=== PATIENT | female | born 1950 | race Hispanic/Latino ===

== ENCOUNTER 2017-01-19 20:06 | Inpatient (IN) | payer OTHER ==
[2017-01-19] MEDS ORDERED: Sodium Chloride 0.9% 1,000 ML IV ONE (20:48)
--- NOTE | 2017-01-19 20:48 | C.PDOC ---
History Of Present Illness Patient presents to the ER with a complaint of right sided abdominal pain, associated with nausea and vomiting. Patient states she has not taken anything for the pain; denies diarrhea, constipation, fever, or chills. Time Seen by Provider: 01/19/17 20:48 Chief Complaint (Nursing): Abdominal Pain History Per: Patient History/Exam Limitations: no limitations Onset/Duration Of Symptoms: Hrs Current Symptoms Are (Timing): Still Present Severity: Mild Pain Scale Rating Of: 4 Location Of Pain/Discomfort: Other (Right sided) Radiation Of Pain To:: None Quality Of Discomfort: Unable To Describe Associated Symptoms: Nausea, Vomiting. denies: Fever, Chills, Diarrhea, Constipation Exacerbating Factors: None Alleviating Factors: None Recent travel outside of the [place]: No Abnormal Vaginal Bleeding: No Past Medical History Reviewed: Historical Data, Nursing Documentation, Vital Signs Vital Signs: Last Vital Signs Temp 98.8 F 01/19/17 20:17 Pulse 76 01/19/17 20:17 Resp 20 01/19/17 20:17 BP 113/72 01/19/17 20:17 Pulse Ox 100 01/19/17 22:38 - Medical History PMH: Depression, Fractures, Graves' Disease, HTN, Hyperthyroidism Surgical History: Family History: States: No Known Family Hx - Social History Hx Tobacco Use: No Hx Alcohol Use: Yes ("social") Hx Substance Use: No - Immunization History Hx Tetanus Toxoid Vaccination: No Hx Influenza Vaccination: No Review Of Systems Constitutional: Negative for: Fever, Chills Gastrointestinal: Positive for: Nausea, Vomiting, Abdominal Pain. Negative for : Diarrhea, Constipation Physical Exam - Physical Exam Appears: Non-toxic Skin: Warm, Dry Head: Normacephalic Eye(s): bilateral: Normal Inspection Oral Mucosa: Moist Neck: Supple Chest: Symmetrical Cardiovascular: Rhythm Regular Respiratory: No Rales, No Rhonchi, No Wheezing Gastrointestinal/Abdominal: Soft, Tenderness (Diffuse) Extremity: No Tenderness Extremity: Bilateral: Atraumatic Pulses: Left Dorsalis Pedis: Normal, Right Dorsalis Pedis: Normal Neurological/Psych: Oriented x3 Gait: Steady ED Course And Treatment - Laboratory Results Result Diagrams: 01/19/17 21:56 01/19/17 21:56 ECG: Interpreted By Me, Viewed By Me ECG Rhythm: Sinus Rhythm (76), Nonspecific Changes O2 Sat by Pulse Oximetry: 100 (Room air) Pulse Ox Interpretation: Normal Progress Note: EKG, blood work, and urinalysis ordered. Pepcid, zofran, and IV fluids administered. Disposition Discussed With : Ellen Greene Comment: [facility] and took over the care at 1:43 AM Doctor Will See Patient In The: Hospital Counseled Patient/Family Regarding: Studies Performed, Diagnosis - Disposition Disposition: HOSPITALIZED Disposition Time: 20:48 Condition: FAIR Forms: [facility] (Martiniquais) - POA Present On Arrival: None - Clinical Impression Clinical Impression: Abdominal pain, Nausea, Gallstones, Diverticulosis - Scribe Statement The provider has reviewed the documentation as recorded by the Scribcathy Child All medical record entries made by the Scribe were at my direction and personally dictated by me. I have reviewed the chart and agree that the record accurately reflects my personal performance of the history, physical exam, medical decision making, and the department course for this patient. I have also personally directed, reviewed, and agree with the discharge instructions and disposition. Decision To Admit - Pt Status Changed To: Hospital Disposition Of: Inpatient - Admit Certification Admit to Inpatient:: After my assessment, the patient will require hospitalization for at least two midnights. This is because of the severity of symptoms shown, intensity of services needed, and/or the medical risk in this patient being treated as an outpatient. - InPatient: Physician Admission Certification:: After my assessment, the patient will require hospitalization for at least two midnights. This is because of the severity of symptoms shown, intensity of services needed, and/or the medical risk in this patient being treated as an outpatient. - . Bed Request Type: Regular Admitting Physician: Ellen Greene Patient Diagnosis: Abdominal pain, Nausea, Gallstones, Diverticulosis
[2017-01-19] MEDS ORDERED: Sodium Chloride 0.9% 1,000 ML ONE (21:57)
[2017-01-19 22:00] LABS: BASO % 0.6 % (0.0-2.0); EOS # 0.2 K/uL (0.0-0.7); EOS % 2.3 % (0.0-4.0); HEMATOCRIT 34.8 % (34.0-47.0); LYMPH # 2.4 K/uL (1.0-4.3); LYMPH % 37.1 % (20.0-40.0); MEAN CELL VOLUME 92.2 fL (81.0-99.0); MEAN CORPUSCULAR HGB CONC 34.7 g/dL (33.0-37.0); MEAN PLATELET VOLUME 8.3 fL (7.2-11.7); MONO # 0.6 K/uL (0.0-0.8); MONO % 8.7 % (0.0-10.0); RED CELL DISTRIBUTION WIDTH 12.7 % (11.5-14.5); WHITE BLOOD COUNT 6.5 K/uL (4.8-10.8)
[2017-01-19 22:08] LABS: CHLORIDE 99 mmol/L (98-107); SODIUM 140 mmol/L (132-148)
[2017-01-19 22:10] LABS: AST/SGOT 24 U/L (14-36); BILIRUBIN,TOTAL 0.8 mg/dL (0.2-1.3); CARBON DIOXIDE 25 mmol/L (22-30); GFR AFRICAN-AMERICAN > 60; RBC URINE 15 /hpf (0-3); URINE BILIRUBIN NEGATIVE (NEGATIVE); URINE BLOOD 1+ (NEGATIVE); URINE COLOR Yellow (YELLOW); URINE GLUCOSE (UA) NORMAL (Normal); URINE KETONE NEGATIVE (NEGATIVE); URINE LEUKOCYTE ESTERASE 1+ Leu/uL (Negative); URINE PROTEIN NEGATIVE (NEGATIVE); WBC URINE 6 /hpf (0-5)
[2017-01-19 22:11] LABS: ALB/GLOB RATIO 1.3 (1.0-2.1); ALKALINE PHOSPHATASE 73 U/L (38-126); ALT/SGPT 31 U/L (9-52); BLOOD UREA NITROGEN 34 mg/dL (7-17); CALCIUM 9.6 mg/dl (8.6-10.4); GLUCOSE,RANDOM 87 mg/dL (65-105); TOTAL PROTEIN 6.8 g/dL (6.3-8.3)
[2017-01-19] MEDS ORDERED: Iohexol 300 100 ML IJ ONE (23:17)
--- NOTE | 2017-01-20 00:54 | CT ---
EXAM: CT Abdomen and Pelvis With Intravenous Contrast EXAM DATE/TIME: 01/19/2017 10:12 PM CLINICAL HISTORY: 66 years old, female; Pain; Abdominal pain; Flank; Right upper quadrant (ruq); Additional info: Ruq abd pain TECHNIQUE: Axial computed tomography images of the abdomen and pelvis with intravenous contrast. All CT scans at this facility use one or more dose reduction techniques, viz.: automated exposure control; ma/kV adjustment per patient size (including targeted exams where dose is matched to indication; i.e. head); or iterative reconstruction technique. Coronal and sagittal reformatted images were created and reviewed. CONTRAST: 100 mL of OMNIPAQUE 300 administered intravenously. COMPARISON: There are no prior studies for comparison. FINDINGS: Lower thorax: Heart size is normal. There is a hiatal hernia. There is atelectasis and scarring at the lung bases. ABDOMEN: Liver: There is fatty infiltration of the liver. Gallbladder and bile ducts: Gallbladder is distended. There are multiple small gallstones. Common duct is unremarkable. Pancreas: Pancreas is atrophic. Spleen: unremarkable Adrenals: unremarkable Kidneys and ureters: unremarkable Stomach and bowel: Stomach is almost empty. Rotation is normal. There are mildly distended small bowel loops in the right upper quadrant. There is no small bowel obstruction. Terminal ileum is unremarkable. Appendix is not visualized.There is no pericecal inflammation.Colon is incompletely distended which limits evaluation. There is scattered diverticulosis Appendix: See above. PELVIS: Bladder: The bladder is incompletely distended. There is bladder wall thickening. Reproductive: Uterus and adnexal structures are unremarkable. ABDOMEN and PELVIS: Intraperitoneal space: There is no free air or free fluid. Bones/joints: There are old bilateral ischial and pubic fractures. Symphysis pubis is normal in width. There degenerative changes in the spine. Soft tissues: There is a small fat containing umbilical hernia. Vasculature: There are vascular calcifications. Lymph nodes: There is no pathologic adenopathy. IMPRESSION: Gallstones, no ductal dilatation; fatty liver; bladder wall thickening, underdistention versus inflammation; diverticulosis without CT findings of diverticulitis Additional findings as described above.
[2017-01-20] MEDS ORDERED: Potassium Chloride 10 mEq ER Tab PO STA (03:17)
[2017-01-20] MEDS ORDERED: Potassium Chloride 20 mEq ER Tab PO ONE (03:23)
--- NOTE | 2017-01-20 08:26 | CP.PCM.CON ---
History of Present Illness - History of Present Illness History of Present Illness: will plan lap gb today Past Patient History - Past Medical History & Family History Past Medical History?: Yes - Past Social History Smoking Status: Former Smoker - CARDIAC Hx Cardiac Disorders: Yes Hx Hypertension: Yes - PULMONARY Hx Respiratory Disorders: No - NEUROLOGICAL Hx Neurological Disorder: No - HEENT Hx HEENT Problems: No - RENAL Hx Chronic Kidney Disease: No - ENDOCRINE/METABOLIC Hx Endocrine Disorders: Yes Hx Hyperthyroidism: Yes - HEMATOLOGICAL/ONCOLOGICAL Hx Blood Disorders: No Other/Comment: vitamin d eficency - INTEGUMENTARY Hx Dermatological Problems: No - MUSCULOSKELETAL/RHEUMATOLOGICAL Hx Musculoskeletal Disorders: Yes Hx Falls: Yes Hx Fractures: Yes - GASTROINTESTINAL Hx Gastrointestinal Disorders: No Other/Comment: gallbladder problems. - GENITOURINARY/GYNECOLOGICAL Hx Genitourinary Disorders: No - PSYCHIATRIC Hx Psychophysiologic Disorder: Yes Hx Depression: Yes Hx Substance Use: No - SURGICAL HISTORY Hx Surgeries: Yes Hx Section: Yes (x 2) Other/Comment: s/p surgery left tibia after a fall - ANESTHESIA Hx Anesthesia: Yes Hx Anesthesia Reactions: No Hx Malignant Hyperthermia: No Meds Allergies/Adverse Reactions: Allergies Allergy/AdvReac Type Severity Reaction Status Date / Time No Known Allergies Allergy Verified 10/25/15 12:57 - Medications Medications: Current Medications Hydromorphone HCl (Dilaudid) 1 mg IVP Q6H PRN PRN Reason: Pain, severe (8-10) Ciprofloxacin (Cipro 400mg/200ml Dsw) 400 mg in 200 mls @ 133 mls/hr IVPB Q12H [facility] Dextrose/Sodium Chloride (Dextrose 5%/0.45% Ns 1000 Ml) 1,000 mls @ 100 mls/hr IV .Q10H [facility] Metronidazole (Flagyl) 500 mg in 100 mls @ 100 mls/hr IVPB Q8 [facility] Pantoprazole Sodium (Protonix Inj) 40 mg IVP DAILY [facility] Pneumococcal Polyvalent Vaccine (Pneumovax 23 Vaccine) 0.5 ml SC .ONCE ONE Stop: 01/22/17 10:01 Results - Vital Signs Recent Vital Signs: Last Vital Signs Temp 97.7 F 01/20/17 08:08 Pulse 68 01/20/17 08:08 Resp 20 01/20/17 08:08 BP 146/75 01/20/17 08:08 Pulse Ox 98 01/20/17 08:08 - Labs Result Diagrams: 01/19/17 21:56 01/19/17 21:56 Labs: Laboratory Results - last 24 hr 01/19/17 01/19/17 01/19/17 21:56 21:56 21:56 WBC 6.5 RBC 3.77 L Hgb 12.1 Hct 34.8 MCV 92.2 MCH 32.0 H MCHC 34.7 RDW 12.7 Plt Count 194 MPV 8.3 Neut % (Auto) 51.3 Lymph % (Auto) 37.1 [place] % (Auto) 8.7 Eos % (Auto) 2.3 Baso % (Auto) 0.6 Neut # 3.3 Lymph # 2.4 [place] # 0.6 Eos # 0.2 Baso # 0.0 PT 11.8 INR 1.0 APTT 34 Sodium Potassium Chloride Carbon Dioxide Anion Gap BUN Creatinine Est GFR ( Amer) Est GFR (Non-Af Amer) Random Glucose Calcium Total Bilirubin AST ALT Alkaline Phosphatase Total Protein Albumin Globulin Albumin/Globulin Ratio Lipase Urine Color Yellow Urine Clarity Clear Urine pH 5.0 Ur Specific [place] 1.019 Urine Protein Negative Urine Glucose (UA) Normal Urine Ketones Negative Urine Blood 1+ H Urine Nitrate Negative Urine Bilirubin Negative Urine Urobilinogen 2.0 H Ur Leukocyte Esterase 1+ H Urine WBC (Auto) 6 H Urine RBC (Auto) 15 H Ur Squamous Epith Cells 2 01/19/17 21:56 WBC RBC Hgb Hct MCV MCH MCHC RDW Plt Count MPV Neut % (Auto) Lymph % (Auto) [place] % (Auto) Eos % (Auto) Baso % (Auto) Neut # Lymph # [place] # Eos # Baso # PT INR APTT Sodium 140 Potassium 3.0 L Chloride 99 Carbon Dioxide 25 Anion Gap 19 BUN 34 H Creatinine 0.9 Est GFR ( Amer) > 60 Est GFR (Non-Af Amer) > 60 Random Glucose 87 Calcium 9.6 Total Bilirubin 0.8 AST 24 ALT 31 Alkaline Phosphatase 73 Total Protein 6.8 Albumin 3.9 Globulin 2.9 Albumin/Globulin Ratio 1.3 Lipase 96 Urine Color Urine Clarity Urine pH Ur Specific [place] Urine Protein Urine Glucose (UA) Urine Ketones Urine Blood Urine Nitrate Urine Bilirubin Urine Urobilinogen Ur Leukocyte Esterase Urine WBC (Auto) Urine RBC (Auto) Ur Squamous Epith Cells
[2017-01-20] MEDS ORDERED: HYDROmorphone 0.5 mg/0.5 ml ISec IVP PRN (08:30)
[2017-01-20] MEDS: Dextrose 5%/0.45% NS 1,000 ML IV SCH (09:26)
[2017-01-20] MEDS: Ciprofloxacin 400mg/200ml D5W 400 MG/200 ML BAG IVPB SCH ×2 (09:29→20:30)
--- NOTE | 2017-01-20 09:53 | CP.PCM.CON ---
History of Present Illness - History of Present Illness History of Present Illness: General Surgery Dr. Rowland 66 y/o F w/ PMHx of hypertension presented to the ED yesterday, 01/19/17, with complaint of RUQ pain, nausea and vomiting. Pain began after eating fried, spicy food. Pt described pain as /10, non-radiating w/ localization to RUQ. Pain improved w/ IV medication provided in ED. pain made worse w/ mvt. Pt admits to having had this pain ~1 month ago, but that it resolved on its own. Pt admits to 1 episode of NBNB vomiting. Pt admits to nausea, F/C, constipation. Pt denies CP, SOB, hematemesis, diarrhea, melena, hematochezia. PMHx: HTN, hypothyroid, hypokalemia Meds: reviewed in chart NKDA PSHx: x2, tibial fracture repair, dental surgery SHx: previous smoker, denies EtOH, drug use FHx: noncontributory Review of Systems - Review of Systems All systems: reviewed and no additional remarkable complaints except (see HPI) Past Patient History - Past Medical History & Family History Past Medical History?: Yes - Past Social History Smoking Status: Former Smoker - CARDIAC Hx Cardiac Disorders: Yes Hx Hypertension: Yes - PULMONARY Hx Respiratory Disorders: No - NEUROLOGICAL Hx Neurological Disorder: No - HEENT Hx HEENT Problems: No - RENAL Hx Chronic Kidney Disease: No - ENDOCRINE/METABOLIC Hx Endocrine Disorders: Yes Hx Hyperthyroidism: Yes - HEMATOLOGICAL/ONCOLOGICAL Hx Blood Disorders: No Other/Comment: vitamin d eficency - INTEGUMENTARY Hx Dermatological Problems: No - MUSCULOSKELETAL/RHEUMATOLOGICAL Hx Musculoskeletal Disorders: Yes Hx Falls: Yes Hx Fractures: Yes - GASTROINTESTINAL Hx Gastrointestinal Disorders: No Other/Comment: gallbladder problems. - GENITOURINARY/GYNECOLOGICAL Hx Genitourinary Disorders: No - PSYCHIATRIC Hx Psychophysiologic Disorder: Yes Hx Depression: Yes Hx Substance Use: No - SURGICAL HISTORY Hx Surgeries: Yes Hx Section: Yes (x 2) Other/Comment: s/p surgery left tibia after a fall - ANESTHESIA Hx Anesthesia: Yes Hx Anesthesia Reactions: No Hx Malignant Hyperthermia: No Meds Allergies/Adverse Reactions: Allergies Allergy/AdvReac Type Severity Reaction Status Date / Time No Known Allergies Allergy Verified 10/25/15 12:57 - Medications Medications: Current Medications Hydromorphone HCl (Dilaudid) 1 mg IVP Q6H PRN PRN Reason: Pain, severe (8-10) Ciprofloxacin (Cipro 400mg/200ml Dsw) 400 mg in 200 mls @ 133 mls/hr IVPB Q12H [facility] Last Admin: 01/20/17 09:29 Dose: 133 mls/hr Dextrose/Sodium Chloride (Dextrose 5%/0.45% Ns 1000 Ml) 1,000 mls @ 100 mls/hr IV .Q10H [facility] Last Admin: 01/20/17 09:26 Dose: 100 mls/hr Metronidazole (Flagyl) 500 mg in 100 mls @ 100 mls/hr IVPB Q8 [facility] Pantoprazole Sodium (Protonix Inj) 40 mg IVP DAILY [facility] Last Admin: 01/20/17 09:30 Dose: 40 mg Pneumococcal Polyvalent Vaccine (Pneumovax 23 Vaccine) 0.5 ml SC .ONCE ONE Stop: 01/22/17 10:01 Physical Exam - Constitutional Appears: Non-toxic, No Acute Distress - Head Exam Head Exam: NORMAL INSPECTION - Eye Exam Eye Exam: Normal appearance - ENT Exam ENT Exam: Mucous Membranes Moist - Respiratory Exam Respiratory Exam: NORMAL BREATHING PATTERN. absent: Accessory Muscle Use, Respiratory Distress - Cardiovascular Exam Cardiovascular Exam: absent: Bradycardia, Tachycardia - GI/Abdominal Exam GI & Abdominal Exam: Soft, Tenderness (TTP RUQ). absent: Distended, Guarding, Rebound Additional comments: (+) Salas's sign - Extremities Exam Extremities exam: Positive for: normal inspection - Neurological Exam Neurological exam: Alert, Normal Gait, Oriented x3 - Psychiatric Exam Psychiatric exam: Normal Affect, Normal Mood - Skin Skin Exam: Dry, Intact, Normal Color, Warm Results - Vital Signs Recent Vital Signs: Last Vital Signs Temp 97.7 F 01/20/17 08:08 Pulse 68 01/20/17 08:08 Resp 20 01/20/17 08:08 BP 146/75 01/20/17 08:08 Pulse Ox 98 01/20/17 08:08 - Labs Result Diagrams: 01/19/17 21:56 01/19/17 21:56 Labs: Laboratory Results - last 24 hr 01/19/17 01/19/17 01/19/17 21:56 21:56 21:56 WBC 6.5 RBC 3.77 L Hgb 12.1 Hct 34.8 MCV 92.2 MCH 32.0 H MCHC 34.7 RDW 12.7 Plt Count 194 MPV 8.3 Neut % (Auto) 51.3 Lymph % (Auto) 37.1 [place] % (Auto) 8.7 Eos % (Auto) 2.3 Baso % (Auto) 0.6 Neut # 3.3 Lymph # 2.4 [place] # 0.6 Eos # 0.2 Baso # 0.0 PT 11.8 INR 1.0 APTT 34 Sodium Potassium Chloride Carbon Dioxide Anion Gap BUN Creatinine Est GFR ( Amer) Est GFR (Non-Af Amer) Random Glucose Calcium Total Bilirubin AST ALT Alkaline Phosphatase Total Protein Albumin Globulin Albumin/Globulin Ratio Lipase Urine Color Yellow Urine Clarity Clear Urine pH 5.0 Ur Specific [place] 1.019 Urine Protein Negative Urine Glucose (UA) Normal Urine Ketones Negative Urine Blood 1+ H Urine Nitrate Negative Urine Bilirubin Negative Urine Urobilinogen 2.0 H Ur Leukocyte Esterase 1+ H Urine WBC (Auto) 6 H Urine RBC (Auto) 15 H Ur Squamous Epith Cells 2 01/19/17 21:56 WBC RBC Hgb Hct MCV MCH MCHC RDW Plt Count MPV Neut % (Auto) Lymph % (Auto) [place] % (Auto) Eos % (Auto) Baso % (Auto) Neut # Lymph # [place] # Eos # Baso # PT INR APTT Sodium 140 Potassium 3.0 L Chloride 99 Carbon Dioxide 25 Anion Gap 19 BUN 34 H Creatinine 0.9 Est GFR ( Amer) > 60 Est GFR (Non-Af Amer) > 60 Random Glucose 87 Calcium 9.6 Total Bilirubin 0.8 AST 24 ALT 31 Alkaline Phosphatase 73 Total Protein 6.8 Albumin 3.9 Globulin 2.9 Albumin/Globulin Ratio 1.3 Lipase 96 Urine Color Urine Clarity Urine pH Ur Specific [place] Urine Protein Urine Glucose (UA) Urine Ketones Urine Blood Urine Nitrate Urine Bilirubin Urine Urobilinogen Ur Leukocyte Esterase Urine WBC (Auto) Urine RBC (Auto) Ur Squamous Epith Cells - Imaging and Cardiology CT scan - abdomen Status: Image reviewed by me Assessment & Plan - Assessment and Plan (Free Text) Assessment: 66 y/o F w/ RUQ abd pain 2/2 symptomatic cholecystitis vs acute cholecystitis - NPO, IVF - pain management - anti-emetics - OR today for laparoscopic cholecystectomy Pt seen and discussed w/ Dr. Kashif Ortiz DO PGY2
[2017-01-20] MEDS ORDERED: Potassium Chloride 20 mEq ER Tab PO SCH (10:00)
--- NOTE | 2017-01-20 13:15 | CP.PCM.PN ---
Subjective - Date & Time of Evaluation Date of Evaluation: 01/20/17 Time of Evaluation: 09:30 - Subjective Subjective: Dr. Greene note: Patient is a 66 year old female with a history of hyperthyroidism, depression, and HTN she is here complaining of several epigastric and right upper quandrant pain. She says the pain started a few days ago and has associated nausea but no vomiting. She has been having regular bowel movements. Objective - Vital Signs/Intake and Output Vital Signs (last 24 hours): Temp Pulse Resp BP Pulse Ox 97.7 F 68 20 146/75 98 01/20/17 08:08 01/20/17 08:08 01/20/17 08:08 01/20/17 08:08 01/20/17 08:08 - Medications Medications: Current Medications Hydromorphone HCl (Dilaudid) 1 mg IVP Q6H PRN PRN Reason: Pain, severe (8-10) Ciprofloxacin (Cipro 400mg/200ml Dsw) 400 mg in 200 mls @ 133 mls/hr IVPB Q12H [facility] Last Admin: 01/20/17 09:29 Dose: 133 mls/hr Dextrose/Sodium Chloride (Dextrose 5%/0.45% Ns 1000 Ml) 1,000 mls @ 100 mls/hr IV .Q10H [facility] Last Admin: 01/20/17 09:26 Dose: 100 mls/hr Metronidazole (Flagyl) 500 mg in 100 mls @ 100 mls/hr IVPB Q8 [facility] Ondansetron HCl (Zofran Inj) 4 mg IVP Q4 PRN PRN Reason: Nausea/Vomiting Pantoprazole Sodium (Protonix Inj) 40 mg IVP DAILY [facility] Last Admin: 01/20/17 09:30 Dose: 40 mg Pneumococcal Polyvalent Vaccine (Pneumovax 23 Vaccine) 0.5 ml SC .ONCE ONE Stop: 01/22/17 10:01 - Labs Labs: 01/19/17 21:56 01/19/17 21:56 PT 11.8 SECONDS (9.7-12.2) 01/19/17 21:56 INR 1.0 01/19/17 21:56 APTT 34 SECONDS (21-34) 01/19/17 21:56 - Constitutional Appears: Non-toxic, No Acute Distress, Older Than Stated Age, Other - Eye Exam Eye Exam: Normal appearance Pupil Exam: NORMAL ACCOMODATION - Respiratory Exam Respiratory Exam: Clear to Ausculation Bilateral. absent: Rales, Rhonchi, Wheezes - Cardiovascular Exam Cardiovascular Exam: REGULAR RHYTHM, RRR, +S1, +S2. absent: Gallop, Rubs - GI/Abdominal Exam GI & Abdominal Exam: Soft, Tenderness, Normal Bowel Sounds Additional comments: positive Sanchez sign. - Extremities Exam Extremities Exam: Pedal Edema. absent: Normal Inspection - Neurological Exam Neurological Exam: Alert, Oriented x3 - Psychiatric Exam Psychiatric exam: Normal Affect, Normal Mood - Skin Skin Exam: Normal Color Assessment and Plan (1) Cholecystitis, acute with cholelithiasis Assessment & Plan: CT scan shows cholelithiasis, Dr. Huertas was consulted for general surgery. Patient was taken the OR this afternoon. Will continue to follow up with General surgery. She is on IV Cipro and Flagyl D5 1/2 NS at 100 cc/hr Dilauded 1mg Q6h and Toradol 15mg Q6h prn for pain. Status: Acute (2) Hypokalemia Status: Acute (3) Graves disease Assessment & Plan: Tapazole 10mg, follow up morning tsh and free t4 Status: Chronic (4) HTN (hypertension) Assessment & Plan: Cozaar 50mg for htn Status: Acute (5) Depression Assessment & Plan: Paxil 10mg Status: Acute (6) Prophylactic measure Assessment & Plan: Protonix 40m IV daily, Zofran q4h prn, Heparin 5000 units sc q12h, and SCDs Status: Acute
[2017-01-20] MEDS: metroNIDAZOLE IV 500 mg/100 ml 500 MG/100 ML BAG IVPB SCH ×2 (13:41→21:44)
[2017-01-20] MEDS ORDERED: Lidocaine Hydrochloride 5 ML INJ ONE (16:03)
[2017-01-20] MEDS ORDERED: Lidocaine 4% (Laryng-O-Jet) Kit MM ONE (16:03)
[2017-01-20] MEDS ORDERED: Midazolam 2 MG/2 ML VIAL ONE (16:03)
[2017-01-20] MEDS ORDERED: Propofol 10 mg/ml Inj (20 ML) ONE (16:03)
[2017-01-20] MEDS ORDERED: Iohexol 240 (50 ml) ONE (16:16)
[2017-01-20] MEDS ORDERED: ceFAZolin IV 1 gm in Dextrose 0 GM/0 ML BAG IVPB ONE (16:16)
[2017-01-20] MEDS ORDERED: Lactated Ringer's 1,000 ML IV ONE (16:45)
--- NOTE | 2017-01-20 18:22 | PCM.SURG1 ---
Surgeon's Initial Post Op Note - Surgeon's Notes Surgeon: Kashif Rn Embedded: Yvonne PGY3 Type of Anesthesia: General Endo Pre-Operative Diagnosis: Cholecystitis Operative Findings: gallstones Post-Operative Diagnosis: same Operation Performed: laparoscopic cholecystectomy w. IOC Specimen/Specimens Removed: gallbladder Estimated Blood Loss: EBL {In ML}: 100 Blood Products Given: N/A Drains Used: No Drains Post-Op Condition: Good Date of Surgery/Procedure: 01/20/17 Time of Surgery/Procedure: 18:23
[2017-01-20] MEDS ORDERED: Oxycodone/Acetaminophen 5/325 mg Tab PO PRN (18:25)
[2017-01-20] MEDS: HYDROmorphone 0.5 mg/0.5 ml ISec IVP PRN ×2 (18:31→18:51)
[2017-01-20] MEDS ORDERED: Dextrose 5%/0.45% NS 1,000 ML IV ONE (19:00)
[2017-01-20 20:21] VITALS: RESP 20
--- NOTE | 2017-01-20 22:04 | OP ---
PROCEDURE DATE: 01/20/2017 PREOPERATIVE DIAGNOSIS: Acute cholecystitis. POSTOPERATIVE DIAGNOSIS: Acute cholecystitis. PROCEDURE CARRIED OUT: Laparoscopic cholecystectomy with C-arm cholangiogram. SURGEON: Alejo Rowland Jr., MD [facility] NURSE: ANESTHESIOLOGIST: Dr. Tran. The patient is a middle-aged woman with abdominal pain, found to have gallstones. OPERATIVE FINDINGS: 1. The gallbladder was not acutely inflamed or distended nor was it thick walled. The rest of the intraoperative findings were unremarkable. Cholangiogram was carried out to the cystic duct which revealed free flow into the duodenum, visualization of the hepatic radicals and no evidence of any stones or strictures in the bile ducts. 2. There was spillage of stones and despite numerous attempts to retrieve, small stones that had fallen out of the gallbladder during the dissection, we were unable to retrieve those stones. Other stones were removed with the specimen. It should be stated again that we made numerous attempts to find these stones and we were unsuccessful in doing so. We then removed the gallbladder from the umbilical port in a bag. We suctioned out as much fluid. We checked the liver bed three times for hemostasis and it was good prior to closure. The blood loss for the procedure was less than 100 mL. We then brought the gallbladder out and terminated the procedure. The umbilical port was closed with a closure device and the skin was closed with subcuticular closure and Steri-Strips. Operation carried out was laparoscopic cholecystectomy with C-arm cholangiogram. Alejo Rowland Jr., MD cc: Ellen Greene MD
[2017-01-21] MEDS: HYDROmorphone 0.5 mg/0.5 ml ISec IVP PRN ×2 (00:56→17:45)
--- NOTE | 2017-01-21 01:37 | RAD ---
INTRAOPERATIVE FLUOROSCOPY HISTORY: Cholecystitis. Symptomatic. TECHNIQUE/FINDINGS: Fluoroscopic guidance was provided by Radiology department. Please see operative report for full details. Three images were provided. Total fluoroscopy time was 23.4 seconds. IMPRESSION: As above
[2017-01-21] MEDS: metroNIDAZOLE IV 500 mg/100 ml 500 MG/100 ML BAG IVPB SCH ×3 (06:22→22:00)
--- NOTE | 2017-01-21 06:53 | HP ---
HISTORY OF PRESENT ILLNESS: The patient admitted to the hospital complaining of abdominal pain, upper abdomen, nausea, and vomiting, , with gallstones, possible cystitis, advised admission. PHYSICAL EXAMINATION: GENERAL: The patient is currently awake, alert, and oriented. HEENT: Within normal limits. NECK: Supple. CHEST: Symmetrical. HEART: Regular. ABDOMEN: . EXTREMITIES: No edema. IMPRESSION: Patient with cholecystitis. The patient on bedrest, supportive care. Ellen Greene MD
[2017-01-21 07:36] LABS: BASO % 0.2 % (0.0-2.0); EOS # 0.1 K/uL (0.0-0.7); EOS % 1.3 % (0.0-4.0); HEMATOCRIT 33.8 % (34.0-47.0); LYMPH # 1.3 K/uL (1.0-4.3); LYMPH % 21.1 % (20.0-40.0); MEAN CELL VOLUME 93.1 fL (81.0-99.0); MEAN CORPUSCULAR HEMOGLOBIN 31.8 pg (27.0-31.0); MEAN CORPUSCULAR HGB CONC 34.2 g/dL (33.0-37.0); MEAN PLATELET VOLUME 8.4 fL (7.2-11.7); MONO # 0.6 K/uL (0.0-0.8); RED CELL DISTRIBUTION WIDTH 12.6 % (11.5-14.5); WHITE BLOOD COUNT 6.2 K/uL (4.8-10.8)
[2017-01-21 08:01] LABS: CHLORIDE 99 mmol/L (98-107); SODIUM 136 mmol/L (132-148)
[2017-01-21 08:02] LABS: POTASSIUM 3.9 mmol/L (3.6-5.2)
[2017-01-21 08:04] LABS: ALB/GLOB RATIO 1.1 (1.0-2.1); ALKALINE PHOSPHATASE 58 U/L (38-126); ALT/SGPT 59 U/L (9-52); AST/SGOT 97 U/L (14-36); BILIRUBIN,TOTAL 1.4 mg/dL (0.2-1.3); BLOOD UREA NITROGEN 14 mg/dL (7-17); CARBON DIOXIDE 29 mmol/L (22-30); GFR AFRICAN-AMERICAN > 60; GLUCOSE,RANDOM 95 mg/dL (65-105); TOTAL PROTEIN 6.5 g/dL (6.3-8.3)
[2017-01-21 08:05] LABS: CALCIUM 9.2 mg/dl (8.6-10.4); MAGNESIUM 1.3 mg/dL (1.6-2.3)
[2017-01-21 08:28] LABS: THYROID STIMULATING HORMONE < 0.02 mIU/L (0.46-4.68)
[2017-01-21] MEDS: Ciprofloxacin 400mg/200ml D5W 400 MG/200 ML BAG IVPB SCH ×2 (08:46→20:30)
[2017-01-21] MEDS: Dextrose 5%/0.45% NS 1,000 ML IV SCH (08:48)
--- NOTE | 2017-01-21 11:58 | CARD ---
APPROVED REPORT EKG Measurement Heart [id number] <Conclusion> Normal sinus rhythm Moderate voltage criteria for LVH, may be normal variant Borderline ECG
--- NOTE | 2017-01-21 12:33 | CP.PCM.PN ---
Subjective - Date & Time of Evaluation Date of Evaluation: 01/21/17 Time of Evaluation: 12:30 - Subjective Subjective: Surgery: Dr. Rowland Pt seen and examined. Resting comfortably in bed. Pain controlled. No F/C. No N/ V. Tolerating diet. Ambulating w. out difficulty. Objective - Vital Signs/Intake and Output Vital Signs (last 24 hours): Temp Pulse Resp BP Pulse Ox 98.5 F 73 20 120/69 96 01/21/17 08:11 01/21/17 08:11 01/21/17 08:11 01/21/17 08:11 01/21/17 08:11 Intake and Output: 01/21/17 01/21/17 06:59 18:59 Intake Total 2019 Balance 2019 - Medications Medications: Current Medications Heparin Sodium (Porcine) (Heparin) 5,000 units SC Q12 [facility] Last Admin: 01/21/17 09:17 Dose: 5,000 units Hydrochlorothiazide (Microzide) 12.5 mg PO DAILY [facility] Last Admin: 01/21/17 09:17 Dose: 12.5 mg Hydromorphone HCl (Dilaudid) 0.5 mg IVP Q4H PRN PRN Reason: Pain, severe (8-10) Last Admin: 01/21/17 00:56 Dose: 0.5 mg Ciprofloxacin (Cipro 400mg/200ml Dsw) 400 mg in 200 mls @ 133 mls/hr IVPB Q12H [facility] Last Admin: 01/21/17 08:46 Dose: 133 mls/hr Dextrose/Sodium Chloride (Dextrose 5%/0.45% Ns 1000 Ml) 1,000 mls @ 100 mls/hr IV .Q10H [facility] Last Admin: 01/21/17 08:48 Dose: 100 mls/hr Metronidazole (Flagyl) 500 mg in 100 mls @ 100 mls/hr IVPB Q8 [facility] Last Admin: 01/21/17 06:22 Dose: 100 mls/hr Ketorolac Tromethamine (Toradol) 15 mg IVP Q6 PRN PRN Reason: Pain, Mild (1-3) Losartan Potassium (Cozaar) 50 mg PO DAILY [facility] Last Admin: 01/21/17 09:17 Dose: 50 mg Methimazole (Tapazole) 10 mg PO BID [facility] Last Admin: 01/21/17 09:17 Dose: 10 mg Ondansetron HCl (Zofran Inj) 4 mg IVP Q4 PRN PRN Reason: Nausea/Vomiting Oxycodone/Acetaminophen (Percocet 5/325 Mg Tab) 1 tab PO Q4H PRN PRN Reason: Pain, moderate (4-7) Stop: 01/23/17 18:26 Last Admin: 01/20/17 21:48 Dose: 1 tab Pantoprazole Sodium (Protonix Inj) 40 mg IVP DAILY [facility] Last Admin: 01/21/17 09:17 Dose: 40 mg Paroxetine HCl (Paxil) 10 mg PO DAILY [facility] Last Admin: 01/21/17 09:17 Dose: 10 mg Pneumococcal Polyvalent Vaccine (Pneumovax 23 Vaccine) 0.5 ml SC .ONCE ONE Stop: 01/22/17 10:01 - Labs Labs: 01/21/17 07:28 01/21/17 07:28 PT 11.8 SECONDS (9.7-12.2) 01/19/17 21:56 INR 1.0 01/19/17 21:56 APTT 34 SECONDS (21-34) 01/19/17 21:56 - Constitutional Appears: Non-toxic, No Acute Distress - Head Exam Head Exam: ATRAUMATIC, NORMOCEPHALIC - Eye Exam Eye Exam: EOMI. absent: Scleral icterus - ENT Exam ENT Exam: Mucous Membranes Moist - Neck Exam Neck Exam: Full ROM - Respiratory Exam Respiratory Exam: NORMAL BREATHING PATTERN. absent: Accessory Muscle Use, Respiratory Distress - GI/Abdominal Exam GI & Abdominal Exam: Soft, Tenderness (abdullahi-incisional ). absent: Distended, Firm, Guarding, Rigid, Rebound - Extremities Exam Extremities Exam: absent: Calf Tenderness, Pedal Edema - Neurological Exam Neurological Exam: Alert, Awake, Oriented x3 - Psychiatric Exam Psychiatric exam: Normal Affect, Normal Mood - Skin Skin Exam: Dry, Warm Assessment and Plan - Assessment and Plan (Free Text) Assessment: 66F w. biliary colic, s/p lap darwin, POD#1 -Elevated LFTs, CMP tomorrow, trend -c/w regular diet -pain management -encourage ambulation and IS use -d/w attending Zemaitis PGY3
--- NOTE | 2017-01-21 14:56 | CP.PCM.PN ---
Subjective - Date & Time of Evaluation Date of Evaluation: 01/21/17 Time of Evaluation: 09:00 - Subjective Subjective: Dr. Greene note: Patient is post op lap darwin day 1, she is complaining abdominal pain, but is tolerating diet and passing gas. Objective - Vital Signs/Intake and Output Vital Signs (last 24 hours): Temp Pulse Resp BP Pulse Ox 98.5 F 73 20 120/69 96 01/21/17 08:11 01/21/17 08:11 01/21/17 08:11 01/21/17 08:11 01/21/17 08:11 Intake and Output: 01/21/17 01/21/17 06:59 18:59 Intake Total 2019 Balance 2019 - Medications Medications: Current Medications Heparin Sodium (Porcine) (Heparin) 5,000 units SC Q12 [facility] Last Admin: 01/21/17 09:17 Dose: 5,000 units Hydrochlorothiazide (Microzide) 12.5 mg PO DAILY [facility] Last Admin: 01/21/17 09:17 Dose: 12.5 mg Hydromorphone HCl (Dilaudid) 0.5 mg IVP Q4H PRN PRN Reason: Pain, severe (8-10) Last Admin: 01/21/17 00:56 Dose: 0.5 mg Ciprofloxacin (Cipro 400mg/200ml Dsw) 400 mg in 200 mls @ 133 mls/hr IVPB Q12H [facility] Last Admin: 01/21/17 08:46 Dose: 133 mls/hr Metronidazole (Flagyl) 500 mg in 100 mls @ 100 mls/hr IVPB Q8 [facility] Last Admin: 01/21/17 14:32 Dose: 100 mls/hr Ketorolac Tromethamine (Toradol) 15 mg IVP Q6 PRN PRN Reason: Pain, Mild (1-3) Losartan Potassium (Cozaar) 50 mg PO DAILY [facility] Last Admin: 01/21/17 09:17 Dose: 50 mg Methimazole (Tapazole) 10 mg PO BID [facility] Last Admin: 01/21/17 09:17 Dose: 10 mg Ondansetron HCl (Zofran Inj) 4 mg IVP Q4 PRN PRN Reason: Nausea/Vomiting Oxycodone/Acetaminophen (Percocet 5/325 Mg Tab) 1 tab PO Q4H PRN PRN Reason: Pain, moderate (4-7) Stop: 01/23/17 18:26 Last Admin: 01/20/17 21:48 Dose: 1 tab Pantoprazole Sodium (Protonix Inj) 40 mg IVP DAILY [facility] Last Admin: 01/21/17 09:17 Dose: 40 mg Paroxetine HCl (Paxil) 10 mg PO DAILY [facility] Last Admin: 01/21/17 09:17 Dose: 10 mg Pneumococcal Polyvalent Vaccine (Pneumovax 23 Vaccine) 0.5 ml SC .ONCE ONE Stop: 01/22/17 10:01 - Labs Labs: 01/21/17 07:28 01/21/17 07:28 PT 11.8 SECONDS (9.7-12.2) 01/19/17 21:56 INR 1.0 01/19/17 21:56 APTT 34 SECONDS (21-34) 01/19/17 21:56 - Constitutional Appears: Non-toxic, No Acute Distress - Eye Exam Eye Exam: Normal appearance. absent: PERRL, Scleral icterus Pupil Exam: NORMAL ACCOMODATION - Respiratory Exam Respiratory Exam: Clear to Ausculation Bilateral. absent: Rhonchi, Wheezes - Cardiovascular Exam Cardiovascular Exam: REGULAR RHYTHM, RRR, +S1, +S2. absent: Gallop, Rubs - GI/Abdominal Exam GI & Abdominal Exam: Soft, Tenderness. absent: Normal Bowel Sounds - Extremities Exam Extremities Exam: Normal Inspection. absent: Pedal Edema - Neurological Exam Neurological Exam: Alert - Psychiatric Exam Psychiatric exam: Anxious - Skin Skin Exam: Normal Color, Warm Assessment and Plan (1) Cholecystitis, acute with cholelithiasis Assessment & Plan: Her T. Bili is elevated and so are her LFTs from yesterday, will keep her one more day per Surgery's reccomendation. Patient on liquid diet. Status: Acute (2) Graves disease Assessment & Plan: continue her home medication TSH below 0.2, Free T4 1.29, patient is asymptomatic. Status: Chronic (3) HTN (hypertension) Assessment & Plan: continue home medication Status: Acute (4) Depression Assessment & Plan: continue with Paxil. Status: Acute (5) Prophylactic measure Assessment & Plan: continue with current management. Status: Acute
[2017-01-22 00:05] VITALS: O2SAT 96
[2017-01-22] MEDS: metroNIDAZOLE IV 500 mg/100 ml 500 MG/100 ML BAG IVPB SCH (05:06)
[2017-01-22 07:54] VITALS: BP 169/76; PULSE 77; TEMP 98.4
[2017-01-22 08:09] LABS: CHLORIDE 99 mmol/L (98-107)
[2017-01-22 08:10] LABS: POTASSIUM 3.9 mmol/L (3.6-5.2); SODIUM 133 mmol/L (132-148)
[2017-01-22 08:12] LABS: BILIRUBIN,TOTAL 1.1 mg/dL (0.2-1.3); CARBON DIOXIDE 27 mmol/L (22-30); GFR AFRICAN-AMERICAN > 60; TOTAL PROTEIN 6.4 g/dL (6.3-8.3)
[2017-01-22 08:13] LABS: ALKALINE PHOSPHATASE 71 U/L (38-126); ALT/SGPT 57 U/L (9-52); AST/SGOT 59 U/L (14-36); BLOOD UREA NITROGEN 11 mg/dL (7-17); CALCIUM 9.2 mg/dl (8.6-10.4); GLUCOSE,RANDOM 97 mg/dL (65-105)
[2017-01-22] MEDS: Ciprofloxacin 400mg/200ml D5W 400 MG/200 ML BAG IVPB SCH (09:21)
[2017-01-22] MEDS ORDERED: Influenza Vaccine 60 mcg/0.5 mL SYR (4YR UP) IM ONE (10:00)
[2017-01-22] MEDS ORDERED: Pneumococcal 23-Valent Vaccine SC ONE (10:00)
--- NOTE | 2017-01-22 13:49 | CP.PCM.PN ---
Subjective - Date & Time of Evaluation Date of Evaluation: 01/22/17 Time of Evaluation: 13:46 - Subjective Subjective: Surgery: Dr. Rowland Pt seen and examined. Resting comfortably in chair. Pain controlled. Tolerating diet. No N/V. Ambulating w. out difficulty. Objective - Vital Signs/Intake and Output Vital Signs (last 24 hours): Temp Pulse Resp BP Pulse Ox 98.4 F 77 20 169/76 H 96 01/22/17 07:53 01/22/17 07:53 01/22/17 07:53 01/22/17 07:53 01/22/17 07:53 Intake and Output: 01/22/17 01/22/17 06:59 18:59 Intake Total 580 Output Total 10 Balance 570 - Medications Medications: Current Medications Heparin Sodium (Porcine) (Heparin) 5,000 units SC Q12 [facility] Last Admin: 01/22/17 09:24 Dose: 5,000 units Hydrochlorothiazide (Microzide) 12.5 mg PO DAILY [facility] Last Admin: 01/22/17 09:24 Dose: 12.5 mg Hydromorphone HCl (Dilaudid) 0.5 mg IVP Q4H PRN PRN Reason: Pain, severe (8-10) Last Admin: 01/21/17 17:45 Dose: 0.5 mg Ciprofloxacin (Cipro 400mg/200ml Dsw) 400 mg in 200 mls @ 133 mls/hr IVPB Q12H [facility] Last Admin: 01/22/17 09:21 Dose: 133 mls/hr Metronidazole (Flagyl) 500 mg in 100 mls @ 100 mls/hr IVPB Q8 [facility] Last Admin: 01/22/17 05:06 Dose: 100 mls/hr Ketorolac Tromethamine (Toradol) 15 mg IVP Q6 PRN PRN Reason: Pain, Mild (1-3) Losartan Potassium (Cozaar) 50 mg PO DAILY [facility] Last Admin: 01/22/17 09:24 Dose: 50 mg Methimazole (Tapazole) 10 mg PO BID [facility] Last Admin: 01/22/17 09:22 Dose: 10 mg Ondansetron HCl (Zofran Inj) 4 mg IVP Q4 PRN PRN Reason: Nausea/Vomiting Oxycodone/Acetaminophen (Percocet 5/325 Mg Tab) 1 tab PO Q4H PRN PRN Reason: Pain, moderate (4-7) Stop: 01/23/17 18:26 Last Admin: 01/20/17 21:48 Dose: 1 tab Pantoprazole Sodium (Protonix Inj) 40 mg IVP DAILY [facility] Last Admin: 01/22/17 09:23 Dose: 40 mg Paroxetine HCl (Paxil) 10 mg PO DAILY [facility] Last Admin: 01/22/17 09:22 Dose: 10 mg - Labs Labs: 01/21/17 07:28 01/22/17 07:14 PT 11.8 SECONDS (9.7-12.2) 01/19/17 21:56 INR 1.0 01/19/17 21:56 APTT 34 SECONDS (21-34) 01/19/17 21:56 - Constitutional Appears: Non-toxic, No Acute Distress - Head Exam Head Exam: ATRAUMATIC, NORMOCEPHALIC - Eye Exam Eye Exam: EOMI - ENT Exam ENT Exam: Mucous Membranes Moist - Respiratory Exam Respiratory Exam: NORMAL BREATHING PATTERN. absent: Accessory Muscle Use, Respiratory Distress - GI/Abdominal Exam GI & Abdominal Exam: Soft, Tenderness (mild abdullahi-incisional ). absent: Distended, Firm, Guarding, Rigid, Rebound - Extremities Exam Extremities Exam: absent: Calf Tenderness, Pedal Edema - Neurological Exam Neurological Exam: Alert, Awake, Oriented x3 - Psychiatric Exam Psychiatric exam: Normal Affect, Normal Mood - Skin Skin Exam: Dry, Normal Color, Warm Assessment and Plan - Assessment and Plan (Free Text) Assessment: 66F w. cholelithiasis, s/p lap darwin, POD#2 -LFTs trending down -pt clear for d/c from surgical standpoint -percocet for pain -Activity as tolerated -F/U w. Dr. Rowland in 1-2 weeks -d/w attending Zemaitis PGY3
--- NOTE | 2017-01-22 19:33 | CP.PCM.PN ---
Subjective - Date & Time of Evaluation Date of Evaluation: 01/22/17 Time of Evaluation: 09:55 - Subjective Subjective: Dr. Greene note: Patient is seen in room. She is still complaining of some abdominal pain but is sitting comfortable in bed. She denies any fever, chills, nausea, vomiting, diarrhea. She is passing gas and tolerating PO diet well. Objective - Vital Signs/Intake and Output Vital Signs (last 24 hours): Temp Pulse Resp BP Pulse Ox 98.4 F 77 20 169/76 H 96 01/22/17 07:53 01/22/17 07:53 01/22/17 07:53 01/22/17 07:53 01/22/17 07:53 Intake and Output: 01/22/17 01/23/17 18:59 06:59 Intake Total 560 Balance 560 - Labs Labs: 01/21/17 07:28 01/22/17 07:14 PT 11.8 SECONDS (9.7-12.2) 01/19/17 21:56 INR 1.0 01/19/17 21:56 APTT 34 SECONDS (21-34) 01/19/17 21:56 - Constitutional Appears: Non-toxic, No Acute Distress - Eye Exam Eye Exam: Normal appearance Pupil Exam: NORMAL ACCOMODATION - Respiratory Exam Respiratory Exam: Clear to Ausculation Bilateral. absent: Rales, Rhonchi, Wheezes - Cardiovascular Exam Cardiovascular Exam: REGULAR RHYTHM, RRR, +S1, +S2. absent: Gallop, Rubs - GI/Abdominal Exam GI & Abdominal Exam: Soft, Tenderness (mild diffuse tenderness), Normal Bowel Sounds - Extremities Exam Extremities Exam: Normal Inspection. absent: Pedal Edema - Back Exam Back Exam: NORMAL INSPECTION - Psychiatric Exam Psychiatric exam: Normal Affect, Normal Mood Assessment and Plan - Assessment and Plan (Free Text) Assessment: Assessment and Plan (1) Cholecystitis, acute with cholelithiasis Assessment & Plan: 01/22: T. Bili and LFTs trending downard, she is tolerating regular diet. Have discharged patient home, she will follow up with her own PMD and also Dr. Huertas, instructions given to her in Nepali. Her T. Bili is elevated and so are her LFTs from yesterday, will keep her one more day per Surgery's reccomendation. Patient on liquid diet. Status: Acute (2) Graves disease Assessment & Plan: continue her home medication TSH below 0.2, Free T4 1.29, patient is asymptomatic. Status: Chronic (3) HTN (hypertension) Assessment & Plan: continue home medication Status: Acute (4) Depression Assessment & Plan: continue with Paxil. Status: Acute (5) Prophylactic measure Assessment & Plan: continue with current management. Status: Acute
== END 2017-01-22 14:41 | disposition home or self-care (01) | DRG 494 ==
LOC: C.ER 20:06 → C.3T 01-20 01:44
PROVIDERS: ADMIT Internal Medicine Pulmonary Disease; ATTEND Internal Medicine Pulmonary Disease
PROC: BF121ZZ Fluoroscopy of Gallbladder using Low Osmolar Contrast (ICD-10-PCS; 2017-01-20)
PROC: 0FT44ZZ Resection of Gallbladder, Percutaneous Endoscopic Approach (ICD-10-PCS; principal; 2017-01-20 15:00)
DX: K80.00 Calculus of gallbladder with acute cholecystitis without obstruction (principal); I10 Essential (primary) hypertension; E03.9 Hypothyroidism, unspecified; K57.90 Diverticulosis of intestine, part unspecified, without perforation or abscess without bleeding; K59.00 Constipation, unspecified; Z87.891 Personal history of nicotine dependence